=== PATIENT | male | born 1990 | race Caucasian/White ===

== ENCOUNTER 2016-07-27 17:10 | Inpatient (IN) | payer BC ==
[2016-07-27] MEDS ORDERED: ONDANSETRON 4 MG/2 ML VIAL ONE (17:33)
[2016-07-27] MEDS ORDERED: NS 1,000 ML IV ONE ×2 (17:36→19:12)
[2016-07-27] MEDS ORDERED: ONDANSETRON 4 MG/2 ML VIAL IVP ONE (17:36)
--- NOTE | 2016-07-27 17:36 | EDPHY ---
H & P Stated Complaint: N/V/D, epigastric pain that started last night;appy on 07/18/16 Time Seen by Provider: 07/27/16 17:22 HPI/ROS: CHIEF COMPLAINT: Abdominal pain HISTORY OF PRESENT ILLNESS: This patient is a 26-year-old male status 9 days post laparoscopic appendectomy for ruptured appendicitis who presents to the Emergency Department today complaining of acute onset vomiting, nausea, and intermittent abdominal pain beginning last night. He describes mild improvement to his symptoms this morning but recurrence of vomiting and episodic pain beginning this afternoon. He describes his pain as localized to the epigastric region of his abdomen. He reports two episodes of diarrhea since onset of symptoms. He denies fever or chills, urinary complaints, or additional concerns. He just completed a four-day course of Augmentin yesterday, which was prescribed by his surgeon following the procedure. He does not know anyone else with similar presentation. REVIEW OF SYSTEMS: A 10 point review of systems was performed and is negative with the exception of the elements mentioned in the history of present illness. Source: Patient Exam Limitations: No limitations - Personal History Current Tetanus Diphtheria and Acellular Pertussis (TDAP): Yes - Medical/Surgical History PMH: Appendectomy on 07/16/2016. Other PMH: Appy~ 10 days ago - Social History Smoking Status: Never smoked Additional Social History: - Visiting from [place] for the [employer]. - Works as an ehs engineer. - Physical Exam Exam: General Appearance: Alert, no acute distress. Blood pressure 152/101. Afebrile. Eyes: Pupils equal and round, no conjunctival injection, no discharge. Anicteric. ENT, Mouth: Mucous membranes are moist, no oropharyngeal erythema or edema. Neck: No lymphadenopathy, supple. Respiratory: Lungs are clear to auscultation; no wheezes, rales, or rhonchi. Cardiovascular: Regular rate and rhythm; no murmur, rub, or gallop. Gastrointestinal: Abdomen is soft with mild mid-epigastric tenderness, no guarding, no masses or organomegaly, bowel sounds normal. Surgical sites intact with minimal warmth and mild erythema surrounding the umbilical incision. Skin: Warm and dry, no rashes, normal color. Back: Nontender to palpation over the thoracolumbar spine. No CVAT. Extremities: No lower extremity edema, no calf tenderness or swelling. Neurological: Alert and oriented. Moving all four extremities easily and equally. Psychiatric: Normal affect. Constitutional: Initial Vital Signs Temperature (C) 37.2 C 07/27/16 17:11 Heart Rate 95 07/27/16 17:11 Respiratory Rate 18 07/27/16 17:11 Blood Pressure 152/101 H 07/27/16 17:11 O2 Sat (%) 96 07/27/16 17:11 O2 Delivery Mode Room Air Allergies/Adverse Reactions: No Known Allergies Allergy (Unverified 07/27/16 17:15) Home Medications: Medication Instructions Recorded Acetaminophen/Codeine 300/30Mg 1 each PO DAILY PRN 07/27/16 [Tylenol #3 (*)] Medical Decision Making - Diagnostics Imaging Results: CT scan of the abdomen reveals an apparent abscess at the site of his surgery. There is also possible abscess versus seroma in the region of the umbilicus. Partial small-bowel obstruction also noted. I reviewed the images. ED Course/Re-evaluation: 26-year-old male visiting from [place] presents 9 days post-appendectomy complaining of acute onset nausea, vomiting, and intermittent epigastric abdominal pain. He is afebrile at time of presentation and denies subjective fever. He is hypertensive at 152/101. He did take a four-day course of Augmentin per surgeon's instructions. Plan for labs and CT of abdomen. IV established. 4mg IV Zofran, 0.5mg IV Dilaudid, and 2L IV NS administered. Labs obtained: WBC is elevated at 21.55. 1857: Imaging results reported to me by Dr. Stuart, radiology, and reveals partial bowel obstruction and surgical site abscess. I discussed these results with the patient. Plan for consult with surgery. IV antibiotics will be administered. No change in abdominal exam. He has not had vomiting. 1910: Consultation with Dr. Raji Schaeffer, general surgery, who will visit the patient in the ED. I discussed imaging results with the patient who expresses understanding to this. He is NPO at this time. IV Zosyn will be administered. The hope is that surgery can be avoided. Differential Diagnosis: I considered a differential diagnosis that includes but is not limited to postoperative abscess, bowel obstruction, ileus, gastroenteritis, and gastritis. - Data Points Laboratory Results: Laboratory Results 07/27/16 17:30 07/27/16 17:30 Medications Given: Discontinued Medications Hydromorphone HCl (Dilaudid) 0.5 mg IVP EDNOW ONE Stop: 07/27/16 17:42 Last Admin: 07/27/16 17:41 Dose: 0.5 mg Sodium Chloride (Ns) 1,000 mls @ 0 mls/hr IV ONCE ONE; Wide Open PRN Reason: Protocol Stop: 07/27/16 17:37 Last Admin: 07/27/16 17:41 Dose: 1,000 mls Sodium Chloride (Ns) 1,000 mls @ 0 mls/hr IV ONCE ONE; Wide Open PRN Reason: Protocol Stop: 07/27/16 19:13 Last Admin: 07/27/16 19:37 Dose: 1,000 mls Piperacillin/Tazobactam/Dextrose (Zosyn (Premix)) 100 mls @ 200 mls/hr IV EDNOW ONE PRN Reason: Protocol Stop: 07/27/16 21:29 Last Admin: 07/27/16 21:05 Dose: 100 mls Ondansetron HCl (Zofran) 4 mg IVP EDNOW ONE Stop: 07/27/16 17:37 Last Admin: 07/27/16 17:41 Dose: 4 mg Departure - Departure Disposition: [facility] Inpatient Acute Clinical Impression: Partial bowel obstruction, Abdominal abscess Condition: Fair Report Scribed for: Savanah Higgins Report Scribed by: Angelica Warren Date of Report: 07/27/16 Time of Report: 17:36 Physician Review and Approval Statement: 07/27/16 21:00 Portions of this note were transcribed by the medical education coordinator. I, Dr. Savanah Higgins, personally performed the history, physical exam, and medical decision- making; and confirmed the accuracy of the information in the transcribed note.
[2016-07-27] MEDS ORDERED: HYDROmorphONE/DILAUDID 1 MG/ML SYR ONE (17:38)
[2016-07-27] MEDS ORDERED: HYDROmorphONE/DILAUDID 1 MG/ML SYR IVP ONE (17:41)
[2016-07-27 17:47] LABS: % IMMATURE GRANULYOCYTES 0.8 % (0.0-1.1); ABSOLUTE IMMATURE GRANULOCYTES 0.18 10^3/uL (0.00-0.10); ADD DIFF? NO; ADD MORPH? NO; ADD SCAN? NO; ATYPICAL LYMPHOCYTE FLAG 40 (0-99); FRAGMENT RBC FLAG 0 (0-99); HEMATOCRIT 43.8 % (40.0-51.0); HEMOGLOBIN 14.9 g/dL (13.7-17.5); LEFT SHIFT FLG 0 (0-99); LIPEMIA HEMOLYSIS FLAG 90 (0-99); MEAN CELL HEMOGLOBIN 29.2 pg (27.9-34.1); MEAN CELL VOLUME 85.7 fL (81.5-99.8); MEAN PLATELET VOLUME 8.9 fL (8.7-11.7); PLATELET CLUMPS FLAG 10 (0-99); PLATELET COUNT 657 10^3/uL (150-400); RED BLOOD CELL COUNT 5.11 10^6/uL (4.40-6.38); RED CELL DISTRIBUTION WIDTH 13.2 % (11.5-15.2)
[2016-07-27 18:14] LABS: ANION GAP 17 mEq/L (8-16); CALCIUM 9.8 mg/dL (8.5-10.4); CARBON DIOXIDE 23 mEq/l (22-31); CHLORIDE 97 mEq/L (97-110); CREATININE 1.4 mg/dL (0.7-1.3); GLOMERULAR FILTRATION RATE > 60; GLUCOSE 103 mg/dL (70-100); POTASSIUM 4.1 mEq/L (3.5-5.2); SODIUM 137 mEq/L (134-144)
[2016-07-27] MEDS ORDERED: IOPAMIDOL (ISOVUE-300) 100 ML BTL ONE (18:16)
--- NOTE | 2016-07-27 20:00 | PDGENHP ---
History and Physical - Chief Complaint nausea, vomiting, abd distention - History of Present Illness 26yo M s/p lap appy performed somewhere in [place], [place] over labor day weekend. Per the patient report, he had a perforated appendix, had a week-long hospital stay where he had a LIANG drain and was eventually discharged home on oral abx. Per the patient, he got home last week Saturday, felt fine until last evening. [place], last evening began to have abd distention associated with nausea and vomiting. This persisted so he presented here. He really denies much abdominal pain but does wince to deep palpation in the RLQ. He denies fevers and chills and other than the above obstrctive sx otherwise feels well. History Information - Allergies/Home Medication List Allergies/Adverse Reactions: No Known Allergies Allergy (Unverified 07/27/16 17:15) Home Medications: Acetaminophen/Codeine 300/30Mg [Tylenol #3 (*)] 1 each PO 07/27/16 [Last Taken Unknown] Amoxicillin/Potassium Clav [Amox-Clav 875-125 mg Tablet] 1 each PO 07/27/16 [ Last Taken Unknown] I have personally reviewed and updated: medical history, social history, surgical history - Past Medical History no pertinent PMH - Surgical History Additional surgical history: s/p lap appy (perfd) - Family History Positive for: non-pertinent - Social History Smoking Status: Never smoked Alcohol Use: Occasionally Drug Use: None Review of Systems ROS: 10pt was reviewed & negative except for what was stated in HPI & below Physical Exam Temp Pulse Resp BP Pulse Ox 37.2 C 95 18 152/101 H 96 07/27/16 17:11 07/27/16 17:11 07/27/16 17:11 07/27/16 17:11 07/27/16 17:11 Constitutional: no apparent distress, appears nourished Eyes: PERRL, EOMI Ears, Nose, Mouth, Throat: moist mucous membranes Cardiovascular: regular rate and rhythym Respiratory: clear to auscultation Gastrointestinal: other (soft, ND, minTTP, incisions c/d/i, no rebound or guarding ) Skin: warm, normal color Musculoskeletal: full muscle strength Neurologic: AAOx3 Psychiatric: interacting appropriately Lymph, Heme, Immunologic: no cervical LAD, No lymphadenopathy Lab Data & Imaging Review 07/27/16 17:30 07/27/16 17:30 WBC 21.55 10^3/uL (3.80-9.50) H 07/27/16 17:30 RBC 5.11 10^6/uL (4.40-6.38) 07/27/16 17:30 Hgb 14.9 g/dL (13.7-17.5) 07/27/16 17:30 Hct 43.8 % (40.0-51.0) 07/27/16 17:30 MCV 85.7 fL (81.5-99.8) 07/27/16 17:30 MCH 29.2 pg (27.9-34.1) 07/27/16 17:30 MCHC 34.0 g/dL (32.4-36.7) 07/27/16 17:30 RDW 13.2 % (11.5-15.2) 07/27/16 17:30 Plt Count 657 10^3/uL (150-400) H 07/27/16 17:30 MPV 8.9 fL (8.7-11.7) 07/27/16 17:30 Neut % (Auto) 87.6 % (39.3-74.2) H 07/27/16 17:30 Lymph % (Auto) 6.9 % (15.0-45.0) L 07/27/16 17:30 Clark % (Auto) 4.4 % (4.5-13.0) L 07/27/16 17:30 Eos % (Auto) 0.1 % (0.6-7.6) L 07/27/16 17:30 Baso % (Auto) 0.2 % (0.3-1.7) L 07/27/16 17:30 Nucleat RBC Rel Count 0.0 % (0.0-0.2) 07/27/16 17:30 Absolute Neuts (auto) 18.87 10^3/uL (1.70-6.50) H 07/27/16 17:30 Absolute Lymphs (auto) 1.48 10^3/uL (1.00-3.00) 07/27/16 17:30 Absolute Monos (auto) 0.94 10^3/uL (0.30-0.80) H 07/27/16 17:30 Absolute Eos (auto) 0.03 10^3/uL (0.03-0.40) 07/27/16 17:30 Absolute Basos (auto) 0.05 10^3/uL (0.02-0.10) 07/27/16 17:30 Absolute Nucleated RBC 0.00 10^3/uL (0-0.01) 07/27/16 17:30 Immature Gran % 0.8 % (0.0-1.1) 07/27/16 17:30 Immature Gran # 0.18 10^3/uL (0.00-0.10) H 07/27/16 17:30 Sodium 137 mEq/L (134-144) 07/27/16 17:30 Potassium 4.1 mEq/L (3.5-5.2) 07/27/16 17:30 Chloride 97 mEq/L (97-110) 07/27/16 17:30 Carbon Dioxide 23 mEq/l (22-31) 07/27/16 17:30 Anion Gap 17 mEq/L (8-16) H 07/27/16 17:30 BUN 23 mg/dL (7-23) 07/27/16 17:30 Creatinine 1.4 mg/dL (0.7-1.3) H 07/27/16 17:30 Estimated GFR > 60 07/27/16 17:30 Glucose 103 mg/dL (70-100) H 07/27/16 17:30 Calcium 9.8 mg/dL (8.5-10.4) 07/27/16 17:30 Visualized and Interpreted imaging results: Yes Interpretation: CT: RLQ medial abscess (undrainable), secondary SBO 2/2 abscess Assessment & Plan Assessment: Abdominal abscess (Acute) Partial bowel obstruction (Acute) 26yo M s/p perforated appendicitis now c abscess, SBO Plan: Discussed with the patient that we will admit, start broad spectrum abx (was on Zosyn previous admission which appeared to cover appropriately, will start that here). Will cont to monitor exam, may eventually be candidate for perc drainage. Discussed that now would be treacherous time to operate given scar tissue and overall bowel friability but that if he decompensates will require exploration. He understands. Discussed plan with ED.
[2016-07-27] MEDS ORDERED: ONDANSETRON DISINTEGRATING 4 MG TAB PO PRN (20:04)
[2016-07-27] MEDS ORDERED: ONDANSETRON 4 MG/2 ML VIAL IVP PRN (20:04)
[2016-07-27] MEDS ORDERED: PIPERACILLIN/TAZO 4.5 GM/DEX 100 ML IV ONE (21:00)
[2016-07-27] MEDS: D5W 1/2 NS W/ 20 KCl/L 1,000 ML IV SCH (21:44)
[2016-07-27] MEDS: HYDROmorphONE/DILAUDID 1 MG/ML SYR IVP PRN (21:59)
[2016-07-28] MEDS: HYDROmorphONE/DILAUDID 1 MG/ML SYR IVP PRN (04:13)
[2016-07-28 05:26] LABS: % IMMATURE GRANULYOCYTES 0.6 % (0.0-1.1); ADD DIFF? NO; ADD MORPH? NO; ADD SCAN? NO; ATYPICAL LYMPHOCYTE FLAG 50 (0-99); FRAGMENT RBC FLAG 0 (0-99); HEMATOCRIT 39.9 % (40.0-51.0); HEMOGLOBIN 13.2 g/dL (13.7-17.5); LEFT SHIFT FLG 10 (0-99); LIPEMIA HEMOLYSIS FLAG 80 (0-99); MEAN CELL HEMOGLOBIN 28.9 pg (27.9-34.1); MEAN CELL HEMOGLOBIN CONCENTR. 33.1 g/dL (32.4-36.7); MEAN CELL VOLUME 87.3 fL (81.5-99.8); PLATELET CLUMPS FLAG 20 (0-99); PLATELET COUNT 527 10^3/uL (150-400); RED BLOOD CELL COUNT 4.57 10^6/uL (4.40-6.38); RED CELL DISTRIBUTION WIDTH 13.5 % (11.5-15.2)
[2016-07-28 05:49] LABS: ANION GAP 13 mEq/L (8-16); CALCIUM 9.1 mg/dL (8.5-10.4); CARBON DIOXIDE 23 mEq/l (22-31); CHLORIDE 102 mEq/L (97-110); CREATININE 1.4 mg/dL (0.7-1.3); GLOMERULAR FILTRATION RATE > 60; GLUCOSE 89 mg/dL (70-100); POTASSIUM 4.6 mEq/L (3.5-5.2); SODIUM 138 mEq/L (134-144)
[2016-07-28] MEDS: PIPERACILLIN/TAZO 4.5 GM/DEX 100 ML IV SCH ×3 (06:13→22:19)
[2016-07-28] MEDS: D5W 1/2 NS W/ 20 KCl/L 1,000 ML IV SCH (07:09)
--- NOTE | 2016-07-28 07:47 | SOAPPROG ---
SOAP Progress Note Assessment/Plan: Assessment: Plan: 26yo M c SBO 2/2 RLQ abscess s/p perfd appy - Cliniclly improving, passing some flatus and WBC improved this AM. Would cont NPo status today. - Likely repeat some imaging tomorrow to reassess improvement in SBO. May still need washout if abscess persists and WBC doesnt resolve. 07/28/16 07:45 Objective: Vital Signs Temp Pulse Resp BP Pulse Ox 36.8 C 71 16 121/83 H 96 07/28/16 04:00 07/28/16 04:00 07/28/16 04:00 07/28/16 04:00 07/28/16 04:00 Laboratory Results 07/28/16 04:23 07/28/16 04:23 07/27/16 07/28/16 07/29/16 05:59 05:59 05:59 Intake Total 1655 Output Total 200 Balance 1455 ICD10 Worksheet Patient Problems: Problems Problem Status Onset Abdominal abscess Acute Partial bowel obstruction Acute
--- NOTE | 2016-07-28 16:52 | SOAPPROG ---
SOAP Progress Note Assessment/Plan: Assessment: ABDOMEN IMPROVING WITH SOME FLATUS / AFEBRILE Plan: HOPEFULLY START CLEARS IN THE A.M. 07/28/16 16:51 Objective: Vital Signs Temp Pulse Resp BP Pulse Ox 37.1 C 68 14 122/78 H 95 07/28/16 16:00 07/28/16 16:00 07/28/16 16:00 07/28/16 16:00 07/28/16 16:00 Laboratory Results 07/28/16 04:23 07/28/16 04:23 07/27/16 07/28/16 07/29/16 05:59 05:59 05:59 Intake Total 1655 Output Total 200 1350 Balance 1455 -1350 ICD10 Worksheet Patient Problems: Problems Problem Status Onset Abdominal abscess Acute Partial bowel obstruction Acute
[2016-07-29] MEDS: D5W 1/2 NS W/ 20 KCl/L 1,000 ML IV SCH ×2 (01:05→12:02)
[2016-07-29] MEDS: PIPERACILLIN/TAZO 4.5 GM/DEX 100 ML IV SCH ×3 (05:01→21:48)
[2016-07-29 09:47] VITALS: RESP 14
--- NOTE | 2016-07-29 14:25 | SOAPPROG ---
SOAP Progress Note Assessment/Plan: Assessment: ABDOMEN IMPROVING WITH SOME FLATUS / AFEBRILE Plan: HOPEFULLY START CLEARS IN THE A.M. 07/28/16 16:51 07/29/16 14:24 AFEBRILE/ MUCH IMPROVED / POSITIVE FLATUS / ABDOMEN SOFT NONTENDER / PLAN IS CLEARS Objective: Vital Signs Temp Pulse Resp BP Pulse Ox 36.8 C 65 14 117/80 96 07/29/16 12:00 07/29/16 12:00 07/29/16 12:00 07/29/16 12:00 07/29/16 12:00 Laboratory Results 07/28/16 04:23 07/28/16 04:23 07/28/16 07/29/16 07/30/16 05:59 05:59 05:59 Intake Total 0996 9295 Output Total 200 9419 650 Balance 1455 -1101 -650 ICD10 Worksheet Patient Problems: Problems Problem Status Onset Abdominal abscess Acute Partial bowel obstruction Acute
[2016-07-30] MEDS: PIPERACILLIN/TAZO 4.5 GM/DEX 100 ML IV SCH ×2 (05:13→14:19)
[2016-07-30 07:14] VITALS: TEMP 98.2
[2016-07-30 11:00] VITALS: BP 128/100; PULSE 72; O2SAT 95
[2016-07-30] MEDS ORDERED: LIDOCAINE 2% 5 ML SDV IF ONE (11:38)
--- NOTE | 2016-07-30 13:18 | GPN ---
[f rep st] PROCEDURE NOTE PREPROCEDURE DIAGNOSIS: Umbilical induration with tenderness. POSTPROCEDURE DIAGNOSIS: Abscess of periumbilical surgical incision. ANESTHESIA: None. COMPLICATIONS: None. SPECIMENS: Purulent fluid for culture. INDICATION: The patient is a 26-year-old man who underwent laparoscopic appendectomy for perforated appendicitis back in [place], [place]. He is traveling to [place] for vacation and developed sympto ms of a small-bowel obstruction. In addition, he developed redness, induration, and tenderness of h is umbilical incision. PROCEDURE PERFORMED: Incision and drainage of umbilical incision. DESCRIPTION OF PROCEDURE: The patient was verbally consented for the procedure. A timeout was perf ormed. The area was prepped in the usual sterile fashion. I infiltrated 5 cc of 2% lidocaine. I ashley magallanes made a cruciate incision over the area of firm induration. I then expressed approximately 50 mL of gross purulent fluid. A culture was obtained. I then irrigated the cavity with approximately 6 0 cc of normal saline with clear return of fluid and then used a cotton swab to break up any loculat ions. The cavity was approximately 2 cm in depth. I then packed with quarter-inch plain packing an d dressed with an Allevyn bandage. Hemostasis was achieved with direct pressure. He tolerated the procedure well. /[id number]/MODL
--- NOTE | 2016-07-30 15:00 | SOAPPROG ---
SOAP Progress Note Assessment/Plan: Assessment: 26yo M s/p lap appy for perforated appendicitis - admitted with SBO and leukocytosis Full return of bowel function - passing flatus and having BMs Pain controlled without use of PO pain meds Tolerating regular diet Increased induration and tenderness of umbilical incision - consistent with abscess, will I&D today Dispo: likely dc after I&D. will f/u with Dr. Ng tomorrow prior to flying home to [place] S: feeling normal other than swelling around belly button O: Sitting up in chair, comfortable, NAD CTAB, no increased WOB RRR +BS, soft. Induration and erythema around umbilical surgical incision. No active drainage. Suspect hematoma/seroma versus abscess Plan: 07/30/16 14:57 Objective: Vital Signs Temp Pulse Resp BP Pulse Ox 36.8 C 72 14 128/100 H 95 07/30/16 10:59 07/30/16 10:59 07/30/16 10:59 07/30/16 10:59 07/30/16 10:59 Laboratory Results 07/28/16 04:23 07/28/16 04:23 07/29/16 07/30/16 07/31/16 05:59 05:59 05:59 Intake Total 2274 1710 Output Total 4534 1660 Balance -1101 -1090 ICD10 Worksheet Patient Problems: Problems Problem Status Onset Abdominal abscess Acute Partial bowel obstruction Acute
--- NOTE | 2016-07-30 15:32 | GDS ---
[f rep st] DISCHARGE SUMMARY ADMITTING DIAGNOSIS: Small-bowel obstruction following perforated appendicitis. SECONDARY DIAGNOSIS: Abdominal wall abscess. REASON FOR ADMISSION: The patient is a 26-year-old man who had laparoscopic appendectomy performed approximately 2 weeks ago in [place], [place]. He was here visiting for vacation, and developed nause a, vomiting and distention. He had a CT scan in the emergency room, which showed small bowel obstru ction versus ileus. There was also a small abscess in the right lower quadrant which was not amenab le to percutaneous drainage. In addition, he had a small seroma versus abscess inferior to his umbi licus. He was admitted for pain control, observations. HOSPITAL COURSE: On hospital day #2, he began to pass flatus and was hungry. He was transitioned t o a clear liquid diet. By hospital day #3, he continued to pass flatus and had a bowel movement. H e was transitioned to a regular diet. Throughout his hospital stay, his pain was controlled without the use of oral pain medication. On the day of discharge, he complained of worsening swelling and redness of his umbilical incision from his laparoscopic appendectomy. There was suspicion for an ab scess. I performed an incision and drainage on 07/30/2016 with expression of approximately 50 mL of purulent fluid. Some of the fluid was sent for culture, which is pending at the time of discharge. The wound was packed with quarter-inch plain gauze. CONDITION: He is being discharged in stable condition. Pain is controlled, tolerating a regular di et, ambulating independently. DISCHARGE INSTRUCTIONS AND FOLLOWUP: He will follow up with Dr. Ng tomorrow for a wound check an d packing change. If all looks well, he may return home to [place] and follow up with his regular s urgeon. DISCHARGE MEDICATIONS: He was sent home with prescription for Augmentin and instructed to resume ho me medicines. See EMR for further detail. /[id number]/MODL
== END 2016-07-30 17:47 | disposition home or self-care (01) | DRG 863 ==
LOC: F3E 21:15
PROVIDERS: ADMIT Surgery; ATTEND Surgery
PROC: 0H97XZZ Drainage of Abdomen Skin, External Approach (ICD-10-PCS; principal; 2016-07-30)
DX: T81.4XXA Infection following a procedure, initial encounter (principal); K56.60 Unspecified intestinal obstruction
CPT/HCPCS: 96374; J1170; J2405; J2543; Q9967